=== PATIENT | male | born 1985 | race Caucasian/White ===

== ENCOUNTER 2018-04-11 15:17 | Emergency (ER) | payer SELFPAY ==
[~2018-04-11] VITALS: Ht 185.4 cm; Wt 100.0 kg
[~2018-04-11 15:17] MED LIST: AMOXICILLIN500 MG PO; LORTAB 10-325 M1 TAB PO; NO MEDS
[2018-04-11] MEDS ORDERED: MOTRIN400 MG PO (15:29)
[2018-04-11] MEDS ORDERED: PENICILLN VK500 M1 PO (15:29)
[2018-04-11] MEDS ORDERED: ZOFRAN4 M1 PO (15:36)
[2018-04-11 15:40] VITALS: BP 133/88
== END 2018-04-11 15:40 | disposition home or self-care (01) | DRG 159 ==
LOC: ED 15:17
DX: K08.89 Other specified disorders of teeth and supporting structures (principal)

== ENCOUNTER 2018-06-11 20:48 | Emergency (ER) | payer SELFPAY ==
[~2018-06-11] VITALS: Ht 185.4 cm; Wt 100.0 kg
[~2018-06-11 20:48] MED LIST changes: +MOTRIN400 MG PO; +PENICILLN VK500 M1 PO; +ZOFRAN4 M1 PO
[2018-06-11 21:33] LABS: IMMATURE GRANULOCYTES 0.1 % (0.0-5.0); MEAN CORPUSCULAR HGB 30.4 pG CALC (26.0-32.0); MEAN CORPUSCULAR HGB CONC 33.7 g/L CALC (32.0-36.0); NEUT# 4.2 thou/uL (1.82-7.42); RED BLOOD COUNT 4.93 mill/uL (4.70-6.10); RED CELL DISTRI WIDTH 12.6 % (11.5-15.5)
[2018-06-11 21:43] LABS: HEMATOCRIT 44.5 % (39.0-50.0); MEAN CELL VOLUME 90.3 fL CALC (80.0-100.0)
[2018-06-11 21:45] VITALS: BP 132/82
[2018-06-11 21:49] LABS: ALBUMIN 4.4 g/dL (3.2-5.0); ALKALINE PHOSPHATASE 75 u/l (38-126); ANION GAP 14 (6-22 (CALC)); BILIRUBIN, TOTAL 0.4 mg/dL (0.0-1.4); BUN 13 mg/dL (9-20); BUN/CREATININE RATIO 16 (12-20 (CALC)); CARBON DIOXIDE 27 mmol/l (22-30); CHLORIDE 104 mmol/l (95-108); CREATININE 0.8 mg/dL (0.7-1.3); GFR > 60 ML/MIN (>=60 (CALC)); GFR FOR AFR.AMER. > 60 ML/MIN (>=60 (CALC)); POTASSIUM 3.8 mmol/l (3.5-5.1); SGOT/AST 17 u/l (17-59); SODIUM 141 mmol/l (137-146); TOTAL PROTEIN 7.2 g/dL (6.3-8.2)
== END 2018-06-11 21:47 | DRG 605 ==
LOC: ED 20:48
PROVIDERS: Emergency Medicine
DX: S61.250A Open bite of right index finger without damage to nail, initial encounter (principal); L02.511 Cutaneous abscess of right hand; S63.630A Sprain of interphalangeal joint of right index finger, initial encounter; W50.3XXA Accidental bite by another person, initial encounter

== ENCOUNTER 2019-01-03 17:21 | Emergency (ER) | payer SELFPAY ==
[~2019-01-03] VITALS: Ht 185.4 cm; Wt 91.0 kg
[2019-01-03] MEDS ORDERED: KEFLEX500 M1 PO (18:10)
[2019-01-03] MEDS ORDERED: BACTROBAN TOP (18:10)
[2019-01-03 18:13] VITALS: BP 158/108
== END 2019-01-03 18:22 | disposition home or self-care (01) | DRG 605 ==
LOC: ED 17:21
DX: S00.81XA Abrasion of other part of head, initial encounter (principal); S80.812A Abrasion, left lower leg, initial encounter; S00.31XA Abrasion of nose, initial encounter; F17.210 Nicotine dependence, cigarettes, uncomplicated; V18.0XXA Pedal cycle driver injured in noncollision transport accident in nontraffic accident, initial encounter; Y93.55 Activity, bike riding

== ENCOUNTER 2020-05-20 12:41 | Emergency (ER) | payer SELFPAY ==
[~2020-05-20] VITALS: Ht 185.4 cm; Wt 95.0 kg
[~2020-05-20 12:41] MED LIST changes: +BACTROBAN TOP; +KEFLEX500 M1 PO
[2020-05-20 14:06] VITALS: BP 168/82
== END 2020-05-20 14:06 | disposition home or self-care (01) | DRG 563 ==
LOC: ED 12:41
DX: S63.601A Unspecified sprain of right thumb, initial encounter (principal); S60.011A Contusion of right thumb without damage to nail, initial encounter; F17.200 Nicotine dependence, unspecified, uncomplicated; V09.9XXA Pedestrian injured in unspecified transport accident, initial encounter

== ENCOUNTER 2020-09-11 09:44 | Emergency (ER) | payer SELFPAY ==
[~2020-09-11] VITALS: Ht 185.4 cm; Wt 95.0 kg
[2020-09-11] MEDS ORDERED: BACTRIM DS1 TAB PO (10:31)
[2020-09-11] MEDS ORDERED: KEFLEX500 MG PO (10:31)
[2020-09-11] MEDS ORDERED: MOTRIN800 MG PO (10:32)
[2020-09-11 10:48] VITALS: BP 138/86
--- NOTE | 2020-09-13 10:26 | NUR ---
[facility] pharmacy was contacted and notified to cancel rxs for both Bactrim DS and cephalexin 500 mg. New rx was called in for doxycline 100 mg BID for [address] Patino. Pt was unable to be reached due to inactive phone number, certified mail will be mailed out on 09/13/20 to notify patient of change in therapy.
== END 2020-09-11 10:48 | disposition home or self-care (01) | DRG 603 ==
LOC: ED 09:44
PROC: 0H9DXZZ Drainage of Right Lower Arm Skin, External Approach (ICD-10-PCS; principal; 2020-09-11)
DX: L02.413 Cutaneous abscess of right upper limb (principal); F17.210 Nicotine dependence, cigarettes, uncomplicated